=== PATIENT | male | born 1965 | race Caucasian/White ===

== ENCOUNTER 2017-01-22 18:00 | Emergency (ER) | payer BC ==
[2017-01-22 18:14] VITALS: RESP 16
--- NOTE | 2017-01-22 18:49 | EDPHY ---
H & P Stated Complaint: Headache and episodes of visual changes since ~ 1900 yesterday HPI/ROS: CHIEF COMPLAINT: Headache HISTORY OF PRESENT ILLNESS: This patient is a 51 y/o male with history of hypertension visiting from [place] complaining of headache and visual changes onset yesterday afternoon around 16:30. Thursday, he arrived from [place] by plane. Yesterday, he developed frontal head pain around 4:30pm. He took two Excedrin and one Bystolic 5mg pill. This morning, he continued to have a bad headache and woke around 4:45 took another two Excedrin and another Bystolic. He has noted visual changes including intermittent loss, blurriness, and occasional flashes. He noted some dried blood on his left nostril earlier today. He has felt very fatigued. Around 1pm today, the headache began again. He has not had further visual changes, but has had difficulty focusing. He endorses aversion to sound and some lack of appetite. He experienced photophobia yesterday, but that has resolved today. He denies any recent trauma. No fever, chest pain, shortness of breath, numbness or weakness, or other associated symptoms. He hopes to return to [place] tomorrow. REVIEW OF SYSTEMS: A ten point review of systems was performed and is negative with the exception of the items mentioned in the HPI. Past medical history: 1. Hypertension (Bystolic) 2. 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 Rare alcohol use. 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 General Appearance: Alert. Vital signs reviewed. BP 135/79 Eyes: Pupils equal and round, no conjunctival injection, no discharge. Anicteric. ENT, Mouth: Mucous membranes are moist, no oropharyngeal erythema or edema. Neck: No lymphadenopathy, supple. Respiratory: Lungs are clear to auscultation; no wheezes, rales, or rhonchi. Cardiovascular: Regular rate and rhythm; no murmur, rub, or gallop. Gastrointestinal: Abdomen is soft and nontender, no masses or organomegaly, bowel sounds normal. Skin: Warm and dry, no rashes on exposed skin, normal color. Back: Nontender to palpation over the thoracolumbar spine. No CVAT. Extremities: No lower extremity edema, no calf tenderness or swelling. Neurological: Alert and oriented. Moving all four extremities easily and equally. Cranial nerves II through XII are examined and are intact (visual acuity not tested). Strength is 5 over 5 bilaterally with testing of all major motor groups. Sensation is intact to light touch over all 4 extremities. Deep tendon reflexes are 2+ in the biceps and knees bilaterally. Gait is normal. [id number] is performed accurately. Psychiatric: Normal affect. - Personal History Current Tetanus/Diphtheria Vaccine: Unsure Current Tetanus Diphtheria and Acellular Pertussis (TDAP): Unsure - Medical/Surgical History Hx Asthma: No Hx Chronic Respiratory Disease: No Hx Diabetes: No Hx Cardiac Disease: No Hx Renal Disease: No Hx Cirrhosis: No Hx Alcoholism: No Hx HIV/AIDS: No Hx Splenectomy or Spleen Trauma: No Other PMH: kelly. htn - Social History Smoking Status: Never smoked Constitutional: Initial Vital Signs Temperature (C) 37.0 C 01/22/17 18:10 Heart Rate 88 01/22/17 18:10 Respiratory Rate 16 01/22/17 18:10 Blood Pressure 121/83 H 01/22/17 18:10 O2 Sat (%) 98 01/22/17 18:10 O2 Delivery Mode Room Air Allergies/Adverse Reactions: No Known Allergies Allergy (Unverified 01/22/17 18:09) Home Medications: Medication Instructions Recorded Bystolic 01/22/17 Synthroid 01/22/17 Medical Decision Making ED Course/Re-evaluation: 51 y/o male presents with 24 hour history of headache with associated visual changes. Physical exam unremarkable. He is neurologically intact. IV established. Plan to administer 1L IV NS and 15mg IV Toradol for symptom relief. The patient drove himself to the emergency department and prefers to avoid medications that would make him sleepy or dissociated. He declines CT head at this time. I discussed the benefit of this scan to rule out acute intracranial processes such as SAH, but the patient prefers to avoid radiation at this time and to proceed with interventions for symptom relief only. He understands that SAH can result in neurologic disability and even . He is able to make his own medical decisions and declines imaging. His blood pressure is not particularly high in the ED. 20:30 Reassessed patient. He is feeling much better and is currently pain free. Plan to discharge home in good condition. Follow up and return precautions discussed. He is comfortable with this plan. Differential Diagnosis: I considered a ddx that includes but is not limited to hypertension urgency/ emergency, stroke, SAH, tumor, migraine, tension headache, cluster headache. - Data Points Medications Given: Discontinued Medications Sodium Chloride (Ns) 1,000 mls @ 3,000 mls/hr IV EDNOW ONE Stop: 01/22/17 19:47 Last Admin: 01/22/17 19:41 Dose: 1,000 mls Ketorolac Tromethamine (Toradol) 15 mg IVP/IM EDNOW ONE Stop: 01/22/17 19:29 Last Admin: 01/22/17 19:41 Dose: 15 mg Departure - Departure Disposition: Home, Routine, Self-Care Clinical Impression: Headache Qualifiers: Headache type: tension-type Headache chronicity pattern: acute headache Intractability: not intractable Qualified Code(s): G44.209 - Tension-type headache, unspecified, not intractable Condition: Good Instructions: Acute Headache (ED) Additional Instructions: 1. Follow up with your primary care physician when you return to [place] for further evaluation. We have referred you to a local primary care provider and neurologist should you desire further evaluation before you return home. 2. Continue to take Excedrin as directed on the packaging as needed for headache relief. You may also take Tylenol or ibuprofen as directed below. Please note that Excedrin contains acetaminophen and take care to not exceed the maximum recommended dosage. 3. Return to the Emergency Department for worsening headache, returning visual changes or double vision, numbness or weakness on one sided of your body, fever , or other worsening of condition. Adult Pain & Fever Control: We recommend Acetaminophen (Tylenol) and Ibuprofen (Motrin,Advil) for pain and fever control. When fever is high or pain severe, both drugs can be used at the same time, but at different intervals. Please note the time differences. Your dose is: Acetaminophen 650mg every 4 to 6 hours Ibuprofen 400mg every 6-8 hours with food Note: do not take Acetaminophen with Hydrocodone (Vicodin, Lortab) or Oxycodone (Percocet). These medications also contain Acetaminophen. No more than 3000mg of Acetaminophen should be taken in 24 hours (for an adult). Referrals: GLO,UNKNOWN [Other] - As per Instructions Melba Blanco MD [[facility] Primary Care Provider] - As per Instructions Prabhjot Rincon DO [Doctor of Osteopathy] - As per Instructions Report Scribed for: Mel Dallas Report Scribed by: Leela Braswell Date of Report: 01/22/17 Time of Report: 19:54 Physician Review and Approval Statement: 01/22/17 18:49 Portions of this note were transcribed by the senior medical technologist. I, Dr. Mel Dallas, personally performed the history, physical exam, and medical decision- making; and confirmed the accuracy of the information in the transcribed note.
[2017-01-22] MEDS ORDERED: KETOROLAC 15 MG/1 ML SDV IVP/IM ONE (19:28)
[2017-01-22] MEDS ORDERED: NS 1,000 ML IV ONE (19:28)
[2017-01-22 20:59] VITALS: BP 132/74; PULSE 78; TEMP 97.9; O2SAT 95
== END 2017-01-22 20:59 | disposition home or self-care (01) ==
PROC: 3E0337Z Introduction of Electrolytic and Water Balance Substance into Peripheral Vein, Percutaneous Approach (ICD-10-PCS; principal; 2017-01-22)
DX: G44.209 Tension-type headache, unspecified, not intractable (principal); I10 Essential (primary) hypertension
CPT/HCPCS: 96374; J1885